=== PATIENT | female | born 1980 ===

== ENCOUNTER 2018-07-03 16:27 | Emergency (ER) | payer OTHER ==
[~2018-07-03] VITALS: Ht 157.5 cm; Wt 59.0 kg
== END 2018-07-03 19:34 | disposition home or self-care (01) ==
LOC: ER 16:27
DX: T78.1XXA Other adverse food reactions, not elsewhere classified, initial encounter (principal); R21 Rash and other nonspecific skin eruption

== ENCOUNTER 2021-03-07 11:37 | Outpatient (CLI) | payer OTHER | END 2021-03-07 11:50 | disposition home or self-care (01) | LOC: MRI 11:37 | DX: G44.221 Chronic tension-type headache, intractable (principal) | CPT/HCPCS: 70551 ==